=== PATIENT | male | born 1955 | race Caucasian/White ===

== ENCOUNTER 2024-12-19 15:54 | Emergency (ER) | payer MEDICARE, OTHER ==
[~2024-12-19] VITALS: Ht 185.4 cm; Wt 90.7 kg
[2024-12-19 16:06] VITALS: BP 111/68; TEMP 98.3
[2024-12-19] MEDS ORDERED: SALI1ADH TP (17:19)
[2024-12-19 17:36] VITALS: O2SAT 95
== END 2024-12-19 17:38 | disposition home or self-care (01) ==
LOC: ER 16:13
DX: B07.0 Plantar wart (principal); F20.9 Schizophrenia, unspecified; I11.9 Hypertensive heart disease without heart failure